=== PATIENT | male | born 1980 | race Caucasian/White ===

== ENCOUNTER → 2020-08-30 10:42 | Outpatient (BNVA) | payer BC, SELFPAY | PROVIDERS: Family Provider Nurse Practitioner Family; PCP Nurse Practitioner Family; Visit Provider Nurse Practitioner Family | DX: Z20.828 Contact with and (suspected) exposure to other viral communicable diseases (principal) | CPT/HCPCS: 87635 ==

== ENCOUNTER 2025-01-27 07:31 | Outpatient (CLI) | payer BC, SELFPAY ==
--- NOTE | 2025-01-27 07:35 | MR_ITS ---
WS: [id number] MRI BRAIN WITH HIGH-RESOLUTION IMAGING THROUGH THE INTERNAL AUDITORY CANALS WITHOUT AND WITH CONTRAST HISTORY: BILATERAL HEARING LOSS,SENSORINEURAL COMPARISON: None available. TECHNIQUE: Multiplanar, multisequence imaging is performed through the brain. Additional 3 mm imaging performed in multiple planes through the internal auditory canal. Postcontrast imaging with 18 ml's of MultiHance. No acute intracranial hemorrhage, midline shift, edema or mass effect. Minimal hyperintense focus in the subcortical white matter of the frontal lobes. No prior infarct. No cerebellar atrophy or cerebral atrophy. Ventricles and extra-axial spaces are normal. No inferior displacement of cerebellar tonsils. Clivus and pituitary gland are normal. Internal and external auditory canals: Unremarkable. Cranial nerves VII and VIII complexes: Unremarkable. No enhancement or mass. Cerebellopontine angles: Normal. Paranasal sinuses: Normal. Mastoid air cells: Normal. Calvarium and scalp: Normal. Visualized [place] and dural venous sinuses demonstrate no abnormality. MR/MR iac's wo/w con* [id number] IMPRESSION: Normal MRI IACs.
[2025-01-27] MEDS: gadobenate dimeglumine 20 mL vial 18 ML IV (08:19)
== END 2025-01-27 07:32 | disposition home or self-care (01) ==
LOC: RAD 07:34
PROVIDERS: Family Provider Nurse Practitioner Family; PCP Family Medicine; Visit Provider Specialist
DX: H90.3 Sensorineural hearing loss, bilateral (principal)
CPT/HCPCS: 70553